=== PATIENT | female | born 1990 ===

== ENCOUNTER 2017-04-07 22:43 | Emergency (ER) | payer MEDICAID ==
[2017-04-07 22:44] VITALS: BMI 28.9
[2017-04-07 23:03] VITALS: BP 117/66; PULSE 75; RESP 16; TEMP 98.6; O2SAT 98
--- NOTE | 2017-04-07 23:14 | ED PDOC ---
HPI: Eye Injury/Pain Time Seen by Provider: 04/07/17 23:04 Chief Complaint (Nursing): Eye Problem History Per: Patient Additional Complaint(s): Pt. states earlier this morning she woke up with R sided eye irritation. States that she feels that she may have a corneal abrasion. Denies trauma, FB sensation , contact lens use, visual changes. Past Medical History Reviewed: Historical Data, Nursing Documentation, Vital Signs Vital Signs: Last Vital Signs Temp 98.6 F 04/07/17 23:01 Pulse 75 04/07/17 23:01 Resp 16 04/07/17 23:01 BP 117/66 04/07/17 23:01 Pulse Ox 98 04/07/17 23:01 - Family History Family History: States: No Known Family Hx - Home Medications Home Medications: Ambulatory Orders Medication Instructions Recorded Erythromycin 0.5% [Erythromycin] 1 applic [employer]EYE Q6 #1 tube 04/07/17 - Allergies Allergies/Adverse Reactions: Allergies Allergy/AdvReac Type Severity Reaction Status Date / Time No Known Allergies Allergy Verified 03/13/16 19:30 Review of Systems ROS Statement: Except As Marked, All Systems Reviewed And Found Negative Eyes: Positive for: Pain, Conjunctivae Inflammation Physical Exam - Physical Exam Appears: Positive for: Well, Non-toxic, No Acute Distress Skin: Positive for: Normal Color, Warm. Negative for: Rash Eye Exam: Positive for: Other (R eye with conjunctival injection and subconjunctival hemorrhage noted at medial canthus; L eye WNL; no corneal uptake b/l) - ECG O2 Sat by Pulse Oximetry: 98 Disposition - Clinical Impression Clinical Impression: Conjunctivitis - Patient ED Disposition Is Patient to be Admitted: No - Disposition Referrals: [facility] [Outside] Juanpablo Pimentel MD [Staff Provider] - Disposition: Routine/Home Disposition Time: 23:36 Condition: STABLE Prescriptions: Erythromycin 0.5% [Erythromycin] 1 applic [employer]EYE Q6 #1 tube Instructions: Conjunctivitis (ED) Forms: [facility] ED School/Work Excuse
== END 2017-04-08 00:37 | disposition home or self-care (01) ==
LOC: H.ER 22:43
DX: H10.9 Unspecified conjunctivitis (principal)

== ENCOUNTER 2017-09-04 08:51 | Emergency (ER) | payer MEDICAID ==
[2017-09-04 08:57] VITALS: BMI 30.4
--- NOTE | 2017-09-04 10:03 | ED PDOC ---
HPI: Back History Per: Patient History/Exam Limitations: no limitations Onset/Duration Of Symptoms: Days, Worse Since Current Symptoms Are (Timing): Constant Quality Of Discomfort: Pressure Severity: Severe Pain Scale Rating Of: 5 Previous Symptoms: Back Pain (Low back pain) Associated Symptoms: None Exacerbating Factor(s): Movement Additional Complaint(s): 27 YO female with sig PMH presents to [facility] ED with low back pain. Pt states that the pain started 6 months ago, suddenly and has worsened since onset. No hx of trauma. Pain is present throughout the low back and is worse with movement and better with ibuprofen. Pain is experienced throughout the day but worse at different times of the day, there is no associated numbness/tingling, radiation of the pain or bowel or urinary incontinence. Additionally, pt endorses pelvic pain that started around the same time. There is no vaginal discharge or bleeding. Pt endorses dyspareunia and urinary frequency in the past few weeks. Denies changes in bowel movements, blood in stool, n/v/d/c. No hx of STIs or ectopic . <Tangela Whaley - Last Filed: 09/04/17 12:28> <Stefani Rivers - Last Filed: 09/04/17 13:28> Time Seen by Provider: 09/04/17 09:08 Past Medical History Reviewed: Historical Data, Nursing Documentation, Vital Signs Vital Signs: Last Vital Signs Temp 97.3 F L 09/04/17 08:57 Pulse 83 09/04/17 08:57 Resp 16 09/04/17 08:57 BP 130/78 09/04/17 08:57 Pulse Ox 100 09/04/17 08:57 - Surgical History Surgical History: No Surg Hx - Family History Family History: States: No Known Family Hx - Living Arrangements Living Arrangements: With Family - Social History Current smoker - smoking cessation education provided: No Ex-Smoker (has not smoked in the last 12 months): No Alcohol: Social Drugs: Denies <Tangela Whaley - Last Filed: 09/04/17 12:28> Vital Signs: Last Vital Signs Temp 98.9 F 09/04/17 12:33 Pulse 86 09/04/17 12:33 Resp 18 09/04/17 12:33 BP 101/58 L 09/04/17 12:33 Pulse Ox 99 09/04/17 12:33 <Stefani Rivers - Last Filed: 09/04/17 13:28> - Home Medications Home Medications: Ambulatory Orders Medication Instructions Recorded Erythromycin 0.5% [Erythromycin] 1 applic [employer]EYE Q6 #1 tube 04/07/17 Ibuprofen [Motrin Tab] 600 mg PO Q8H PRN #20 tab 09/04/17 - Allergies Allergies/Adverse Reactions: Allergies Allergy/AdvReac Type Severity Reaction Status Date / Time No Known Allergies Allergy Verified 09/04/17 09:43 Supervising Attending Note - Supervising Attending Note The Documented history was done by the: Physician Hand Edger The documented physical exam was done by the: Physician Hand Edger The documented procedures were done by the: Physician Hand Edger - Attestation: I have personally seen and examined this patient.: Yes I have fully participated in the care of the patient.: Yes I have reviewed all pertinent clinical information: Yes <Stefani Rivers - Last Filed: 09/04/17 13:28> Review of Systems ROS Statement: Except As Marked, All Systems Reviewed And Found Negative Constitutional: Negative for: Fever, Chills Gastrointestinal: Negative for: Nausea, Vomiting, Diarrhea, Constipation Genitourinary Female: Positive for: Frequency, Pelvic Pain. Negative for: Dysuria, Incontinence, Vaginal Discharge, Vaginal Bleeding Musculoskeletal: Positive for: Back Pain (low back) Neurological: Negative for: Weakness, Numbness <Tangela Whaley - Last Filed: 09/04/17 12:28> Physical Exam - Reviewed Nursing Documentation Reviewed: Yes Vital Signs Reviewed: Yes - Physical Exam Appears: Positive for: Well, Non-toxic, No Acute Distress Head Exam: Positive for: ATRAUMATIC, NORMAL INSPECTION, NORMOCEPHALIC Skin: Positive for: Normal Color, Warm, DRY Eye Exam: Positive for: EOMI, Normal appearance, PERRL ENT: Positive for: Normal ENT Inspection Neck: Positive for: Normal, Painless ROM Cardiovascular/Chest: Positive for: Regular Rate, Rhythm Respiratory: Positive for: CNT, Normal Breath Sounds Gastrointestinal/Abdominal: Positive for: Bowel Sounds, Soft, Tenderness ( tenderness to palpation of the pelvic area b/l ). Negative for: Mass, Distended , Guarding Pelvic Exam: Positive for: External Exam Normal, Speculum Exam Normal, No Cerv. Motion Tender, No Masses, Other (mild adnexal tenderness on the bimanual exam (b /l)). Negative for: Discharge Back: Positive for: Normal Inspection, Vertebral Tenderness (Tenderness lumbar area. Normal ROM with extension and flexion. Stright leg test neg b/l). Negative for: L CVA Tenderness, R CVA Tenderness, Muscle Spasm Extremity: Positive for: Normal ROM. Negative for: Pedal Edema Neurologic/Psych: Positive for: Alert, Oriented <Tangela Whaley - Last Filed: 09/04/17 12:28> - ECG O2 Sat by Pulse Oximetry: 100 - Progress ED Course And Treament: Pt is not currently in any pain. Plan is discussed with patient. She agrees with plan. UA and test are both negative. Pelvic exam done, some adnexal tenderness on bimanual exam Lumbar Xray appreciated, no acute findings. Transvaginal u/s appreciated, no acute findings, IUD in place, R follicular ovarian cyst 1.2x1.5x1.2cm. Pt is feeling well, findings discussed with py. She feels well to go home. D/c home with ibuprofen. Will follow up with PCP. <Tangela Whaley - Last Filed: 09/04/17 12:28> Disposition - Disposition Disposition: Routine/Home Disposition Time: 12:30 <Tangela Whaley - Last Filed: 09/04/17 12:28> <RiversStefaniminna Nieto - Last Filed: 09/04/17 13:28> - Clinical Impression Clinical Impression: Low back pain - Disposition Referrals: [facility] [Outside] Condition: STABLE Additional Instructions: Please come back to ED if pain persists or worsens Follow up with PCP Prescriptions: Ibuprofen [Motrin Tab] 600 mg PO Q8H PRN #20 tab PRN Reason: Pain, Moderate (4-7) Instructions: Back Exercises (ED) Forms: [facility] ([place]ese)
--- NOTE | 2017-09-04 11:07 | RAD ---
PROCEDURE: Radiographs of the Lumbar Spine. HISTORY: chronic low back pain COMPARISON: None available. FINDINGS: BONES: Alignment appears satisfactory. No listhesis. No acute displaced fracture identified. DISC SPACES: Unremarkable. OTHER FINDINGS: IUD. IMPRESSION: No acute displaced fracture or subluxation identified
--- NOTE | 2017-09-04 12:13 | US ---
HISTORY: Pelvic pain COMPARISON: None available. TECHNIQUE: Pelvis/transvaginal ultrasound FINDINGS: UTERUS: Measures 8.5 x 5.3 x 4.5 cm. Anteverted. ENDOMETRIUM: Measures 1 cm in diameter. IUD appears in satisfactory position. CERVIX: Cervix length measures approximately 2.8 cm. RIGHT OVARY: Measures 2.7 x 3.1 x 2.0 cm. Blood flow is demonstrated. 1.2 x 1.5 x 1.2 cm follicle/cyst. LEFT OVARY: Measures 3.2 x 1.8 x 1.6 cm. Blood flow is demonstrated. FREE FLUID: No significant free fluid noted. OTHER FINDINGS: None. IMPRESSION: IUD appears in satisfactory position. 1.5 cm right ovarian follicle/cyst.
[2017-09-04 12:35] VITALS: BP 101/58; PULSE 86; RESP 18; TEMP 98.9; O2SAT 99
== END 2017-09-04 12:33 | disposition home or self-care (01) ==
LOC: H.ER 08:51
DX: M54.5 Low back pain (principal); N83.201 Unspecified ovarian cyst, right side

== ENCOUNTER 2017-10-15 18:58 | Emergency (ER) | payer MEDICAID ==
[2017-10-15 18:58] VITALS: BMI 30.4
[2017-10-15 19:09] VITALS: BP 115/88; PULSE 95; RESP 16; O2SAT 100
--- NOTE | 2017-10-15 19:22 | ED PDOC ---
HPI: Chest Pain Time Seen by Provider: 10/15/17 19:14 Chief Complaint (Nursing): Chest Pain History Per: Patient (Sharp substernal chest pain, worse on inspiration since yesterday. Also has pain when coughing and laughing. Denies cough or SOB) Onset/Duration Of Symptoms: Days (2) Severity: Mild Pain Scale Rating Of: 2 Quality: Sharp Exacerbating Factors: Movement, Deep Breathing Past Medical History Vital Signs: Last Vital Signs Temp 97.5 F L 10/15/17 19:46 Pulse 95 H 10/15/17 19:08 Resp 16 10/15/17 19:08 BP 115/88 10/15/17 19:08 Pulse Ox 100 10/15/17 19:22 - Medical History PMH: No Chronic Diseases - Family History Family History: States: Unknown Family Hx - Home Medications Home Medications: Ambulatory Orders Medication Instructions Recorded Naproxen [Naprosyn] 500 mg PO Q12H #20 tab 10/15/17 - Allergies Allergies/Adverse Reactions: Allergies Allergy/AdvReac Type Severity Reaction Status Date / Time No Known Allergies Allergy Verified 10/15/17 19:30 Review of Systems Respiratory: Positive for: Pleuritic Pain. Negative for: Shortness of Breath Gastrointestinal: Negative for: Nausea, Vomiting, Abdominal Pain Musculoskeletal: Negative for: Back Pain Physical Exam - Physical Exam Appears: Positive for: Non-toxic, No Acute Distress Skin: Positive for: Normal Color, Warm, DRY Cardiovascular/Chest: Positive for: Regular Rate, Rhythm. Negative for: Chest Non Tender (ant chest wall tendernes) Respiratory: Positive for: Normal Breath Sounds. Negative for: Rhonchi, Wheezing, Respiratory Distress Gastrointestinal/Abdominal: Positive for: Bowel Sounds, Soft. Negative for: Tenderness Back: Positive for: Normal Inspection. Negative for: Vertebral Tenderness Neurologic/Psych: Positive for: Alert, Oriented - ECG O2 Sat by Pulse Oximetry: 100 Disposition - Clinical Impression Clinical Impression: Chest pain, pleuritic - Patient ED Disposition Is Patient to be Admitted: No Counseled Patient/Family Regarding: Studies Performed, Diagnosis, Need For Followup, Rx Given - Disposition Referrals: [facility] [Outside] Disposition: Routine/Home Disposition Time: 20:28 Condition: FAIR Prescriptions: Naproxen [Naprosyn] 500 mg PO Q12H #20 tab Instructions: Pleurisy (ED) Forms: [employer] ([place])
[2017-10-15 19:47] VITALS: TEMP 97.5
--- NOTE | 2017-10-16 10:03 | RAD ---
HISTORY: chest pain COMPARISON: Portable chest 03/26/2011. TECHNIQUE: Chest PA and lateral FINDINGS: LUNGS: No active pulmonary disease. PLEURA: No significant pleural effusion identified. No pneumothorax apparent. CARDIOVASCULAR: Normal. OSSEOUS STRUCTURES: No significant abnormalities. VISUALIZED UPPER ABDOMEN: Normal. OTHER FINDINGS: None. IMPRESSION: No interval acute cardiopulmonary disease appreciated.
--- NOTE | 2017-10-18 12:41 | CARD ---
APPROVED REPORT EKG Measurement Heart [id number] <Conclusion> Normal sinus rhythm Nonspecific T wave abnormality Abnormal ECG
== END 2017-10-15 20:53 | disposition home or self-care (01) ==
LOC: H.ER 18:58
DX: R07.1 Chest pain on breathing (principal)